=== PATIENT | female | born 1980 | race Caucasian/White ===

== ENCOUNTER 2018-02-28 17:36 | Emergency (ER) | payer BC ==
[2018-02-28 18:09] VITALS: BP 140/92
[2018-02-28] MEDS ORDERED: DOXYcycline CAP(*) 100 MG PO ONE (18:21)
--- NOTE | 2018-02-28 18:21 | UC ---
Skin Complaint HPI - HPI Summary HPI Summary: Patient was visiting her family in [facility] 2 days ago this afternoon noticed a tick on her right inner thigh. Tick was engorged patient removed the tick about 1 hour prior to arrival came into the urgent care - History of Current Complaint Chief Complaint: UCSkin Time Seen by Provider: 02/28/18 18:15 Stated Complaint: TICK Hx Obtained From: Patient Hx Last Menstrual Period: 02/13/18 ?: No Onset/Duration: Sudden Onset Timing: Constant Pain Intensity: 0 Location: Discrete Aggravating Factor(s): Nothing Alleviating Factor(s): Nothing Associated Signs & Symptoms: Positive: Negative Related History: Insect Bite/Sting - Allergy/Home Medications Allergies/Adverse Reactions: Allergies Allergy/AdvReac Type Severity Reaction Status Date / Time Sulfa (Sulfonamide Allergy Intermediate Hives Verified 02/28/18 18:10 Antibiotics) Review of Systems Constitutional: Negative Skin: Other - Tick removed from right inner thigh one hour ago-was likely attached for 2 days Eyes: Negative ENT: Negative Respiratory: Negative Cardiovascular: Negative Gastrointestinal: Negative Genitourinary: Negative Motor: Negative Neurovascular: Negative Musculoskeletal: Negative Neurological: Negative Psychological: Negative Is Patient Immunocompromised?: No All Other Systems Reviewed And Are Negative: Yes PMH/Surg Hx/FS Hx/Imm Hx Previously Healthy: No Endocrine History: Hypothyroidism - Surgical History Surgical History: Yes Surgery Procedure, Year, and Place: knee surgery at age 15 - Family History Known Family History: Positive: None - Social History Occupation: Employed Full-time Lives: With Family Alcohol Use: Rare Substance Use Type: None Smoking Status (MU): Never Smoked Tobacco Physical Exam Triage Information Reviewed: Yes Appearance: Well-Appearing, No Pain Distress, Well-Nourished Vital Signs: Initial Vital Signs Temp 98.5 F 02/28/18 18:04 Pulse 92 02/28/18 18:04 Resp 18 02/28/18 18:04 BP 140/92 02/28/18 18:04 Pulse Ox 100 02/28/18 18:04 Vital Signs Reviewed: Yes Eye Exam: Normal Eyes: Positive: Conjunctiva Clear ENT Exam: Normal ENT: Positive: Normal ENT inspection, Hearing grossly normal. Negative: Trismus , Muffled voice, Hoarse voice Dental Exam: Normal Neck exam: Normal Neck: Positive: Supple, Nontender Respiratory Exam: Normal Respiratory: Positive: Chest non-tender, No respiratory distress, No accessory muscle use Cardiovascular Exam: Normal Cardiovascular: Positive: RRR, Pulses Normal, Brisk Capillary Refill Musculoskeletal Exam: Normal Musculoskeletal: Positive: Strength Intact, ROM Intact, No Edema Neurological Exam: Normal Neurological: Positive: Alert, Muscle Tone Normal Psychological Exam: Normal Skin Exam: Other Skin: Positive: Other - small erythomic area right innder thigh Course/Dx - Course Course Of Treatment: Doxycycline 200 mg po times one now---observe for s/s of Lyme follow with pcp - Diagnoses Provider Diagnoses: Tick Bite, Lyme PEP, elevated blood pressure with dx of hypertension Discharge - Sign-Out/Discharge Documenting (check all that apply): Patient Departure - Discharge Plan Condition: Stable Disposition: HOME Patient Education Materials: Lyme Disease (ED), Tick Bite (ED), Hypertension ( ED) Referrals: Sha Garcia MD [Primary Care Provider] - 2 Weeks - Billing Disposition and Condition Condition: STABLE Disposition: Home
== END 2018-02-28 18:32 | disposition home or self-care (01) ==
LOC: UCCORT 17:36
DX: S70.361A Insect bite (nonvenomous), right thigh, initial encounter (principal); Z88.2 Allergy status to sulfonamides; W57.XXXA Bitten or stung by nonvenomous insect and other nonvenomous arthropods, initial encounter; Y93.9 Activity, unspecified; Y92.9 Unspecified place or not applicable; Z23 Encounter for immunization; R03.0 Elevated blood-pressure reading, without diagnosis of hypertension
CPT/HCPCS: 99202; A9270-GY; G0463